=== PATIENT | female | born 1990 | race Two or more races ===

== ENCOUNTER 2017-01-30 08:58 | Day surgery (SDC) | payer OTHER ==
[2017-01-30] MEDS ORDERED: FAMOTIDINE INJ/PF 20 MG/2 ML SDV IV ONE (10:20)
[2017-01-30] MEDS ORDERED: SCOPOLAMINE HYDROBROMIDE 1.5 MG PATCH.TD72 ONE (10:20)
[2017-01-30] MEDS ORDERED: BUPIVACAINE HCL 0.5%-EPI 1:200000 INJ/PF 30 ML VIAL ONE (11:38)
[2017-01-30] MEDS ORDERED: FENTANYL CITRATE INJ/PF 100 MCG/2 ML AMPUL ONE ×2 (11:40→12:42)
[2017-01-30] MEDS ORDERED: MIDAZOLAM 2 MG/2 ML INJ ONE (11:40)
[2017-01-30] MEDS ORDERED: ACETAMINOPHEN 100 ML IV ONE (11:41)
[2017-01-30] MEDS ORDERED: PROPOFOL INJ 200 MG/20 ML VIAL IV ONE (11:41)
[2017-01-30] MEDS ORDERED: PROMETHAZINE HCL INJ 25 MG/1 ML VIAL IV PRN ×3 (12:16→13:00)
[2017-01-30] MEDS ORDERED: FENTANYL CITRATE INJ/PF 100 MCG/2 ML AMPUL IV PRN ×3 (12:16)
[2017-01-30] MEDS ORDERED: MEPERIDINE HCL/PF INJ 25 MG/1 ML DISP.SYRIN IV PRN (12:16)
[2017-01-30] MEDS ORDERED: DIPHENHYDRAMINE HCL 50 MG/ML VIAL IV PRN (12:16)
[2017-01-30] MEDS ORDERED: ONDANSETRON HCL INJ/PF 4 MG/2 ML SDV IV PRN ×2 (12:16→13:00)
[2017-01-30] MEDS ORDERED: METOCLOPRAMIDE HCL INJ/PF 10 MG/2 ML SDV ONE (12:52)
[2017-01-30] MEDS ORDERED: PROMETHAZINE HCL INJ 25 MG/1 ML VIAL ONE (12:53)
[2017-01-30] MEDS ORDERED: OXYCODONE-ACETAMINOPHEN 5-325 MG TABLET PO PRN (13:00)
[2017-01-30] MEDS ORDERED: RINGERS SOLUTION,LACTATED 1,000 ML IV PRN (13:00)
[2017-01-30] MEDS ORDERED: MORPHINE SULFATE 10 MG/ML INJ IV PRN (13:00)
[2017-01-30] MEDS ORDERED: SUCCINYLCHOLINE CHLORIDE INJ 200 MG/10 ML VIAL ONE (13:47)
[2017-01-30] MEDS ORDERED: ONDANSETRON HCL INJ/PF 4 MG/2 ML SDV ONE ×2 (13:47→14:14)
[2017-01-30] MEDS ORDERED: LIDOCAINE 2% INJ-PF (20 MG/ML) 2 ML AMPUL ONE (13:47)
[2017-01-30] MEDS ORDERED: GLYCOPYRROLATE INJ 0.4 MG/2 ML VIAL ONE (13:47)
[2017-01-30] MEDS ORDERED: DEXAMETHASONE SOD PHOSPHATE INJ 4 MG/1 ML VIAL ONE (13:47)
[2017-01-30 15:54] VITALS: BP 98/62
--- NOTE | 2017-01-30 19:33 | OPERATIVE REPORT E ---
Operative Report NAME: ZORAIDA BRIGHT : 1990 AGE: 26Y DATE OF SURGERY: 01/30/2017 ROOM: PREOPERATIVE DIAGNOSES: 1. RECURRENT ACUTE TONSILLITIS. 2. CHRONIC TONSILLITIS. POSTOPERATIVE DIAGNOSES: 1. RECURRENT ACUTE TONSILLITIS. 2. CHRONIC TONSILLITIS. OPERATION: Bilateral tonsillectomy, patient age greater than 12. SURGEON: NEO WILLIS D.O. ANESTHESIA: General endotracheal tube. ANESTHESIA STAFF: BROOKLYNN King. TISSUE REMOVED OR ALTERED: Left and right tonsillar tissue. ESTIMATED BLOOD LOSS: 5 mL. FLUIDS: 1200 mL. COMPLICATIONS: None. DRAINS: None. FINDINGS: 1. The tonsils were noted to be less than 2+ in size, and were cryptic in nature. 2. The soft palatal tissues were redundant in appearance and the uvula was otherwise unremarkable. INDICATIONS: This is a 26-year-old female who was seen and evaluated in the [facility]. The patient had been referred for and she complained of a history of recurrent acute tonsillitis episodes occurring each year, requiring antibiotic treatment over the years. With these episodes, she experiences significant sore throat discomfort and decreased p.o. intake. The patient also reports a history of chronic tonsillitis symptoms over the years, with history consistent with keratosis pharyngis. The patient has desired to undergo tonsil surgery over the years to move beyond her tonsil problems. After extensive discussion with the patient, recommendation and plan was for tonsil surgery. The procedure and all of its risks and complications were all discussed in detail with the patient. She voiced an understanding of the described plan, agreed to proceed, and consent was obtained. PROCEDURE: The patient was taken to the main operating room and placed on the operating room table in the supine position. Appropriate monitors were placed. Using mask and IV access, general anesthesia was induced. The patient was next transorally intubated without difficulty. The patient was rotated 90 degrees and positioned for tonsil surgery. The patient's lips, teeth, tongue and inside of the mouth were inspected and noted to be without defects. There was a mouth gag inserted. It was opened, and the patient was placed into suspension. There was a soft catheter placed through the patient's nose that was used to suspend the soft palate. Findings are as noted above. At this point, the plasma knife was used to dissect and remove tonsillar tissue on each side. This device was also used to provide adequate hemostasis. Saline irritation was performed and suctioned. There was adequate hemostasis noted. The soft catheter was next released and removed from the patient's nose. The mouth gag was removed from the patient's mouth without difficulty. There was no damage to the lips, teeth, tongue, gums, or inside of the mouth. The patient was then returned to the anesthesia staff and was allowed to emerge from general anesthesia. The patient was extubated in the main operating room and was then transported to the post-anesthesia recovery unit in stable condition. There were no complications. DICTATING PHYSICIAN: NEO WILLIS D.O. [id number] PHY#: [id number] ID: [id number] JOB#: [id number] ACCT: [id number] cc:NEO WILLIS D.O. >
== END 2017-01-30 15:40 | disposition home or self-care (01) ==
LOC: OROUT 08:58
PROVIDERS: ATTEND Otolaryngology
PROC: 0CTPXZZ Resection of Tonsils, External Approach (ICD-10-PCS; principal; 2017-01-30 11:00)
DX: J35.01 Chronic tonsillitis (principal); J03.91 Acute recurrent tonsillitis, unspecified; Z87.891 Personal history of nicotine dependence
CPT/HCPCS: 81025; 88304 ×2; 42826; J2250; J3490 ×2; J1100; J3010; J2765; J2550; J0330; J2405; J2704; S0028; J0131; 170

== ENCOUNTER 2017-02-13 07:27 | Day surgery (SDC) | payer OTHER ==
[2017-02-09 12:19] LABS: HEMATOCRIT 41.3 % (36.0-47.0); HEMOGLOBIN 13.4 g/dL (12.0-15.5); HGB HCT DIFFERENCE -1.1; MEAN CORPUSCULAR HEMOGLOBIN 26.5 pg (27.0-33.4); MEAN CORPUSCULAR HGB CONC 32.4 g/dL (32.0-36.0); MEAN CORPUSCULAR VOLUME 82 fl (80-97); RED BLOOD COUNT 5.04 10^6/uL (3.72-5.28); RED CELL DISTRIBUTION WIDTH 12.9 % (11.5-14.0); WHITE BLOOD COUNT 7.8 10^3/uL (4.0-10.5)
[2017-02-09 12:31] LABS: APPEARANCE,URINE SLIGHTLY-CLOUDY; BILIRUBIN,URINE NEGATIVE (NEGATIVE); GLUCOSE, URINE NEGATIVE (NEGATIVE); KETONES,URINE TRACE mg/dL (NEGATIVE); LEUKOCYTE ESTERASE,URINE NEGATIVE (NEGATIVE); NITRITE,URINE NEGATIVE (NEGATIVE); PROTEIN,URINE NEGATIVE (NEGATIVE); URINE SPECIFIC GRAVITY 1.034; UROBILINOGEN,URINE NEGATIVE mg/dL (<2.0)
[~2017-02-13 07:27] MED LIST: FENTANYL CITRATE INJ/PF 100 MCG/2 ML AMPUL ONE; LACTATED RINGERS 1000 ML IV PRN; LIDOCAINE 0.5% INJ-PF (5 MG/ML) 50 ML SDV SUBCUT PRN; LIDOCAINE 1%/EPINEPHRINE INJ 20 ML VIAL ONE; MIDAZOLAM 2 MG/2 ML INJ ONE; PROPOFOL INJ 200 MG/20 ML VIAL IV ONE
[2017-02-13] MEDS ORDERED: MIDAZOLAM 2 MG/2 ML INJ ONE (09:21)
[2017-02-13] MEDS ORDERED: FENTANYL CITRATE INJ/PF 100 MCG/2 ML AMPUL IV PRN ×3 (10:03)
[2017-02-13] MEDS ORDERED: DIPHENHYDRAMINE HCL 50 MG/ML VIAL IV PRN (10:03)
[2017-02-13] MEDS ORDERED: PROMETHAZINE HCL INJ 25 MG/1 ML VIAL IV PRN (10:03)
--- NOTE | 2017-02-13 10:27 | Operative Report ---
Operative Report DATE OF SURGERY: 02/13/17 PREOPERATIVE DIAGNOSIS: High grade dysplasia, Pt desires cold knife cone. POSTOPERATIVE DIAGNOSIS: same OPERATION: [facility] SURGEON: BARAK HUYNH ANESTHESIA: GA TISSUE REMOVED OR ALTERED: cone biopsy and ecc COMPLICATIONS: none ESTIMATED BLOOD LOSS: 20 cc INTRAOPERATIVE FINDINGS: Normal appearing cervix PROCEDURE: The patient was taken to the or and placed under general anesthesia. She was placed in Gibson stirrups and her perineum and vagina prepared and draped. A weighted speculum was placed in the vagina and the anterior lip cervix grasped with a tenaculum. Cervix was grasped at 9:00 and 3:00 with single-tooth tenaculum. The cervix was infiltrated with dilute solution of lidocaine with epinephrine. The cone biopsy was then removed with scalpel blade. It was sent for pathology. Endocervical curetting was obtained. Angle sutures were placed at 3 and 9:00 using chromic suture. A running baseball stitch was placed around the circumference of the cervix. Small amount bleeding in the endocervical canal was cauterized with the Bovie unit. Irrigation was then used the cervix was hemostatic. All instruments were removed from the vagina and she was placed back in supine position. She is brought out of anesthesia and taken to recovery room in stable condition. End of dictation
[2017-02-13] MEDS ORDERED: ONDANSETRON HCL INJ/PF 4 MG/2 ML SDV ONE ×2 (10:34→12:46)
[2017-02-13] MEDS ORDERED: ACETAMINOPHEN 100 ML IV ONE (10:44)
[2017-02-13] MEDS ORDERED: NALBUPHINE HCL INJ 10 MG/1 ML AMPULE IV PRN (10:51)
[2017-02-13] MEDS ORDERED: OXYCODONE-ACETAMINOPHEN 5-325 MG TABLET PO PRN ×2 (10:52→10:53)
[2017-02-13] MEDS ORDERED: IBUPROFEN 800 MG TABLET PO PRN (10:52)
[2017-02-13] MEDS ORDERED: DEXAMETHASONE SOD PHOSPHATE INJ 4 MG/1 ML VIAL ONE (12:46)
[2017-02-13 12:47] VITALS: BP 91/62
== END 2017-02-13 12:37 | disposition home or self-care (01) ==
LOC: OROUT 07:27
PROVIDERS: ATTEND Obstetrics & Gynecology
PROC: 0UBC7ZX Excision of Cervix, Via Natural or Artificial Opening, Diagnostic (ICD-10-PCS; principal; 2017-02-13 09:30)
DX: D06.0 Carcinoma in situ of endocervix (principal); R87.810 Cervical high risk human papillomavirus (HPV) DNA test positive; D64.9 Anemia, unspecified; Z87.891 Personal history of nicotine dependence
CPT/HCPCS: 36415; 85027; 81005; 81025; 88305 ×2; 88307 ×2; 57520; J2250; J1100; J3010; J3490; J2405; J2704; J0131; 940

== ENCOUNTER 2017-05-20 14:07 | Emergency (ER) | payer OTHER ==
[2017-05-20 14:20] VITALS: BP 101/66
[2017-05-20] MEDS ORDERED: METHYLPREDNISOLONE INJ 125 MG/2 ML SDV IM ONE (14:31)
[2017-05-20] MEDS ORDERED: FAMOTIDINE 20 MG TABLET PO ONE (14:31)
[2017-05-20] MEDS ORDERED: DIPHENHYDRAMINE HCL 50 MG CAPSULE PO ONE (14:31)
--- NOTE | 2017-05-20 14:37 | ER Document Report ---
HPI - HPI Pain Level: 4 Notes: Patient is a 26-year-old female who presents to the ED complaining of right upper lip swelling and pain 1 day. Patient states that she did eat shrimp last evening and started having lip tingling and numbness at that time. Patient states that she took Benadryl which improved her symptoms. Patient states that she woke up this morning and had a swollen lip and has been for about 9 hours. Patient states that her symptoms are not worsening. Patient states that she feels some radiation of achiness into her right cheek. She has not had any dental pain. Patient states that she did have shingles in the past on her forehead, but has not noticed any similar rash. She has noted a small crusted lesion on her lip without any redness, abscess, or purulence. Patient states that she still eating and drinking without difficulties. She is urinating normally and having normal bowel movements. Denies any headache, fever, head injury, neck pain, URI, sore throat, chest pain, palpitations, syncope, cough, shortness of breath, wheeze, dyspnea, abdominal pain, nausea/ vomiting/diarrhea, urinary retention, dysuria, hematuria, muscle paralysis/ weakness, or rash. - ROS Systems Reviewed and Negative: Yes All other systems reviewed and negative - REPRODUCTIVE Reproductive: DENIES: : Past Medical History - Social History Smoking Status: Unknown if Ever Smoked Chew tobacco use (# tins/day): No Frequency of alcohol use: None Drug Abuse: None Family History: DM Patient has suicidal ideation: No Patient has homicidal ideation: No - Past Medical History Cardiac Medical History: Denies: Hx Coronary Artery Disease, Hx Heart Attack, Hx Hypertension Pulmonary Medical History: Reports: Hx Bronchitis Denies: Hx Asthma, Hx COPD, Hx Pneumonia Neurological Medical History: Denies: Hx Cerebrovascular Accident, Hx Seizures Renal/ Medical History: Denies: Hx Peritoneal Dialysis GI Medical History: Denies: Hx Hepatitis, Hx Hiatal Hernia, Hx Ulcer Musculoskeltal Medical History: Denies Hx Arthritis, Reports Hx Musculoskeletal Deformity - scoliosis Psychiatric Medical History: Reports: Hx Depression - pp depression G2 Infectious Medical History: Denies: Hx Hepatitis Past Surgical History: Reports: Hx Section - x2, Hx Orthopedic Surgery - Aiden Yehuda for scoliosis. Denies: Hx Hysterectomy, Hx Mastectomy, Hx Open Heart Surgery, Hx Pacemaker - Immunizations Immunizations up to date: Yes Hx Diphtheria, Pertussis, Tetanus Vaccination: Yes - 06/06/12 Vertical Provider Document - CONSTITUTIONAL Agree With Documented VS: Yes Notes: PHYSICAL EXAMINATION: GENERAL: Well-appearing, well-nourished and in no acute distress. A&Ox4. Answers questions appropriately. Moves comfortably w/o notable distress HEAD: Atraumatic, normocephalic. EYES: Pupils equal round and reactive to light, extraocular movements intact, sclera anicteric, conjunctiva are normal. ENT: EAC clear b/l. TM's intact b/l without erythema, fluid, or perforation. Nares patent and with clear discharge. oropharynx mild erythema without exudates. No tonsilar hypertrophy without erythema or exudate. No palatine shift. Uvula midline. No tongue protrusion. No drooling, hoarseness, or airway compromise. Moist mucous membranes. No sinus tenderness. No angioedema. NECK: Normal range of motion, supple without lymphadenopathy. No rigidity/ meningismus. LUNGS: Breath sounds clear to auscultation bilaterally and equal. No wheezes rales or rhonchi. No retractions HEART: Regular rate and rhythm without murmurs, rubs, gallops. ABDOMEN: Soft, nontender, nondistended abdomen. No guarding, no rebound. No masses appreciated. Normal bowel sounds present. No CVA tenderness bilaterally. NEUROLOGICAL: Normal speech, normal gait. Normal sensory, motor exams PSYCH: Normal mood, normal affect. SKIN: upper right lip: crusted over lesion to the rt lip w/o other erythema/ vesicles. No other skin rash noted. No lesions within the oral mucosa. - INFECTION CONTROL TRAVEL OUTSIDE OF THE [place] IN LAST 30 DAYS: No Course - Re-evaluation Re-evalutation: 05/20/17 14:37 Patient is an afebrile, well-hydrated, 26-year-old female who presents to the ED with a lip lesion and right upper lip swelling. Vitals are acceptable. PE is otherwise unremarkable. Her differential does include allergic reaction, oral herpes, and impetigo. I have concerned as she had tingling and swelling after she ate shrimp last evening, but does show presentations of a lesion to her lip that is crusted over at this time which could have resulted from a vesicular oral herpes or the start of impetigo. Because of her presentation, I will cover for all 3 at this time. Solu-Medrol, Benadryl, and Pepcid given today. I will be sending her home with a prescription for acyclovir as well as mupirocin. Low suspicion for any meningitis, sepsis, peritonsillar/pharyngeal abscess, respiratory compromise, Ganesh's, herpes zoster, or other emergent systemic condition at this time. Patient is aware this condition can change from initial presentation and she needs to monitor symptoms closely. Conservative measures otherwise for symptoms. Recheck with your PCM in 2-3 days. Return to the ED with any worsening/concerning symptoms otherwise as reviewed in discharge. Patient is in agreement. - Vital Signs Vital signs: Temp Pulse Resp BP Pulse Ox 98.0 F 78 16 101/66 99 05/20/17 14:19 05/20/17 14:19 05/20/17 14:19 05/20/17 14:19 05/20/17 14:19 Discharge - Discharge Clinical Impression: Lesion of lip Condition: Stable Disposition: HOME, SELF-CARE Additional Instructions: Keep the skin clean Wash with soap and water Tylenol/ibuprofen if needed Meds as directed Benadryl/pepcid as needed Take medication as directed Monitor for any worsening symptoms Recheck with your PCM in 2-3 days Return to the ED with any worsening symptoms and/or development of fever, headache, chest pain, palpitations, syncope, shortness of breath, trouble breathing, abdominal pain, n/v/d, abscess, purulent discharge, red streaks, worsening swelling, or other worsening symptoms that are concerning to you. Prescriptions: Acyclovir [Acyclovir 400 mg Tablet] 400 mg PO TID #21 tablet Mupirocin 1 gm TP TID #1 bottle Referrals: [facility] [Provider Group] - Follow up as needed [facility] [Provider Group] - Follow up as needed
[2017-05-20] MEDS ORDERED: IBUPROFEN 600 MG TABLET PO ONE (14:43)
== END 2017-05-20 15:18 | disposition home or self-care (01) ==
LOC: ER 14:07
DX: K13.0 Diseases of lips (principal); R22.0 Localized swelling, mass and lump, head
CPT/HCPCS: 99283; 96372; J2930